=== PATIENT | male | born 1970 | race Caucasian/White ===

== ENCOUNTER 2023-01-08 13:52 | Outpatient (CLI) | payer OTHER, SELFPAY | END 2023-01-08 13:53 | disposition home or self-care (01) | PROVIDERS: Visit Provider Family Medicine | DX: Z00.00 Encounter for general adult medical examination without abnormal findings (principal); E78.5 Hyperlipidemia, unspecified; I10 Essential (primary) hypertension | CPT/HCPCS: 80053; 80061; 82043; 82570 ==